=== PATIENT | male | born 2000 | race Caucasian/White ===

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

== ENCOUNTER 2019-08-04 14:49 | Emergency (ER) | payer MEDICAID, OTHER ==
[~2019-08-04] VITALS: Ht 188 cm; Wt 68.0 kg
[2019-08-04] MEDS ORDERED: HYDROcodone/acetaminophen 5mg/325mg tablet PO ONE (16:50)
[2019-08-04] MEDS ORDERED: HYDR-4384 PO (17:01)
[2019-08-04 17:19] VITALS: BP 135/82
== END 2019-08-04 17:21 | disposition home or self-care (01) ==
LOC: ER 14:51
DX: S42.031A Displaced fracture of lateral end of right clavicle, initial encounter for closed fracture (principal); F12.90 Cannabis use, unspecified, uncomplicated; Z98.890 Other specified postprocedural states; V00.311A Fall from snowboard, initial encounter; Y93.29 Activity, other involving ice and snow; Y92.89 Other specified places as the place of occurrence of the external cause; Y99.8 Other external cause status
CPT/HCPCS: 73030; 99283

== ENCOUNTER 2019-08-06 16:30 | Outpatient (CLI) | payer OTHER ==
[~2019-08-06 16:30] MED LIST: HYDR-4384 PO
[2019-08-07] MEDS ORDERED: NO HOME MEDS (11:17)
== END 2019-08-06 17:00 | disposition home or self-care (01) ==
LOC: ORTHO 16:30
PROVIDERS: ATTEND Orthopaedic Surgery
DX: S42.031A Displaced fracture of lateral end of right clavicle, initial encounter for closed fracture (principal); F12.90 Cannabis use, unspecified, uncomplicated; F17.200 Nicotine dependence, unspecified, uncomplicated; Z98.890 Other specified postprocedural states; V00.311A Fall from snowboard, initial encounter; Y93.29 Activity, other involving ice and snow; Y92.89 Other specified places as the place of occurrence of the external cause; Y99.8 Other external cause status
CPT/HCPCS: G0463

== ENCOUNTER 2019-08-07 10:39 | Day surgery (SDC) | payer OTHER ==
[~2019-08-07] VITALS: Ht 188 cm; Wt 67.1 kg
[~2019-08-07 10:39] MED LIST changes: +ceFAZolin 2gm in dextrose, iso 50 ML IV ONE
[2019-08-07 10:50] VITALS: BP 110/64
[2019-08-07] MEDS ORDERED: ringers solution, lacted 1,000 ML IV ONE (11:15)
[2019-08-07] MEDS ORDERED: famotidine 10mg tablet PO ONE (11:15)
[2019-08-07] MEDS ORDERED: NO HOME MEDS (11:17)
[2019-08-07 12:01] VITALS: BP 110/64
[2019-08-07] MEDS ORDERED: midazolam 2 mg/2 ml injection ONE ×2 (12:06)
[2019-08-07] MEDS ORDERED: ROPIVAcaine 0.5% (5mg/ml) 30ml vial ONE (12:07)
[2019-08-07] MEDS ORDERED: propofol inj 20 ML IV ONE (12:07)
[2019-08-07] MEDS ORDERED: fentaNYL/PF 50MCG/1 ML 2ML syringe ONE (12:07)
[2019-08-07] MEDS ORDERED: sevoflurane 250ml liquid IH ONE (12:12)
[2019-08-07] MEDS ORDERED: ringers solution, lacted 1,000 ML IV SCH (13:08)
[2019-08-07] MEDS ORDERED: proCHLORperazine 10 MG/2 ml inj IV PRN (13:10)
[2019-08-07] MEDS ORDERED: ondansetron/PF 4mg/2ml inj IV PRN (13:10)
[2019-08-07] MEDS ORDERED: morphine 4 MG/ML inj SYRINge IV PRN ×2 (13:10)
[2019-08-07] MEDS ORDERED: meperidine/PF 25mg/ml syringe IV PRN ×3 (13:10)
[2019-08-07 14:02] VITALS: BP 107/63
--- NOTE | 2019-08-07 14:02 | NUR ---
Received from OR via [facility] , accompanied by Anesthesiologist DANIELITO and report given by Anesthesiolgist. PATIENT WITH ANTERIOR SHOULDER DRESSING TO THIE RIGHT WITH SHOULDER WRAP AND ICE PACK. 20G PIV LEFT UE RUNNING LR AT 100. LMA PRESENT. 100% SATRUATIONS WITH 10L MASK. Addendum: 08/07/19 at 1409 by Sami Richardson RN, RN Amended: Links added.
[2019-08-07 14:12] VITALS: BP 111/74
[2019-08-07 14:22] VITALS: BP 115/72
[2019-08-07 14:32] VITALS: BP 118/75
--- NOTE | 2019-08-07 14:42 | NUR ---
ALL DC CRITERIA HAS BEEN MET. IV TAKEN OUT WITHOUT COMPLICATIONS. ALL INSTRUCTIONS COVERED AND ALL QUESTIONS ANSWERED. DRESSINGS CDI. OUT VIA WHEELCHAIR TO PERSONAL VEHICLE WHERE PATIENT WAS SECURED IN AND DRIVEN HOME BY FAMILY. Addendum: 08/07/19 at 1444 by Sami Richardson RN, RN Amended: Links added.
== END 2019-08-07 14:42 | disposition home or self-care (01) ==
LOC: PAS 10:39
PROVIDERS: ATTEND Orthopaedic Surgery
DX: S42.031A Displaced fracture of lateral end of right clavicle, initial encounter for closed fracture (principal); F17.210 Nicotine dependence, cigarettes, uncomplicated; Z98.890 Other specified postprocedural states; G89.18 Other acute postprocedural pain; Z79.899 Other long term (current) drug therapy; X58.XXXA Exposure to other specified factors, initial encounter; Y93.89 Activity, other specified; Y92.89 Other specified places as the place of occurrence of the external cause; Y99.8 Other external cause status
CPT/HCPCS: 23515; 64415; 82948; C1713; J2250; J2704; J3010; A4215; A4565; A4618; A7000; J2795; J7120

== ENCOUNTER 2019-08-27 09:45 | Outpatient (CLI) | payer OTHER ==
[~2019-08-27 09:45] MED LIST changes: -HYDR-4384 PO; +NO HOME MEDS; -ceFAZolin 2gm in dextrose, iso 50 ML IV ONE
[2019-08-27 10:31] VITALS: BP 120/71
== END 2019-08-27 10:30 | disposition home or self-care (01) ==
LOC: ORTHO 09:45
PROVIDERS: ATTEND Nurse Practitioner
DX: S42.031A Displaced fracture of lateral end of right clavicle, initial encounter for closed fracture (principal); X58.XXXA Exposure to other specified factors, initial encounter; Y93.89 Activity, other specified; Y92.89 Other specified places as the place of occurrence of the external cause; Y99.8 Other external cause status
CPT/HCPCS: G0463

== ENCOUNTER 2024-04-11 13:45 | Emergency (ER) | payer SELFPAY ==
[~2024-04-11] VITALS: Ht 188 cm; Wt 77.3 kg
[2024-04-11] MEDS ORDERED: PENI500T2 PO (14:16)
[2024-04-11 14:40] VITALS: BP 119/70; PULSE 100; RESP 16; TEMP 99.2; O2SAT 98
== END 2024-04-11 14:41 | disposition home or self-care (01) ==
LOC: ER 13:46
DX: J02.9 Acute pharyngitis, unspecified (principal); F12.90 Cannabis use, unspecified, uncomplicated
CPT/HCPCS: 99283